=== PATIENT | female | born 1975 | race Caucasian/White ===

== ENCOUNTER 2016-12-29 19:53 | Emergency (ER) | payer BC, OTHER ==
[~2016-12-29] VITALS: Ht 152.4 cm; Wt 79.4 kg
[2016-12-29 19:59] VITALS: BP 119/88
--- NOTE | 2016-12-29 20:32 | NUR ---
PT TAKEN TO XRAY FROM THE LOBBY
--- NOTE | 2016-12-29 20:56 | NUR ---
PT RETURN FROM XRAY TO THE LOBBY
--- NOTE | 2016-12-29 21:07 | NUR ---
PT TAKEN TO OF
--- NOTE | 2016-12-29 21:45 | NUR ---
PATIENT LEFT WITHOUT BEING SEEN BY DR. Haider. NO FURTHER CARE PROVIDED FOR PATIENT.
== END 2016-12-29 21:45 | disposition left against medical advice (07) ==
LOC: MED 19:53
DX: Z53.21 Procedure and treatment not carried out due to patient leaving prior to being seen by health care provider (principal)
CPT/HCPCS: 70250; 72040; 73030; 73610; 99281

== ENCOUNTER 2016-12-30 00:45 | Emergency (ER) | payer OTHER ==
[~2016-12-30] VITALS: Ht 152.4 cm; Wt 79.4 kg
[2016-12-30 00:51] VITALS: BP 108/69
--- NOTE | 2016-12-30 01:00 | NUR ---
PT TAKEN TO BED 7
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
--- NOTE | 2016-12-30 01:15 | NUR ---
Dr. Haider evaluating patient at bedside.
[2016-12-30] MEDS ORDERED: KETOROLAC 60 MG/2 ML VIAL IM ONE (01:35)
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
[2016-12-30 02:10] VITALS: BP 115/73
--- NOTE | 2016-12-30 02:10 | NUR ---
Patient discharged with v/s stable. Written and verbal after care instructions given and explained. Patient alert, oriented and verbalized understanding of instructions. Ambulatory with steady gait. All questions addressed prior to discharge. ID band removed. Patient advised to follow up with PMD OR RETURN BACK TO ER IF CONDITION WORSENS. Rx of TYLENOL WITH CEDEINE given. Patient educated on indication of medication including possible reaction and side effects. Opportunity to ask questions provided and answered.
== END 2016-12-30 02:10 | disposition home or self-care (01) ==
LOC: MED 00:45
DX: S93.402A Sprain of unspecified ligament of left ankle, initial encounter (principal); Z88.2 Allergy status to sulfonamides; Z88.1 Allergy status to other antibiotic agents; X58.XXXA Exposure to other specified factors, initial encounter; Y93.89 Activity, other specified; Y92.89 Other specified places as the place of occurrence of the external cause; Y99.8 Other external cause status
CPT/HCPCS: 96372; 99283; J1885